=== PATIENT | male | born 1960 | race Caucasian/White ===

== ENCOUNTER → 2021-02-05 | Outpatient (CLI) | payer BC ==
[~2021-02-05] MED LIST: ASA81BEC PO; FLONASE 0.05%50 MCG NARES; HYDROCODON-ACE1 EAC7 PO; LIPITOR10 MG PO; LISINOPRIL5 MG PO; TOPROL XL25 MG PO; VENTOLIN HFA INH8 GM INH; VITAMIN B12-FO1 EAC1 PO; VITAMIN C500 M2 PO; VITAMIN D325 MC3 PO; ZYRTEC10 M5 PO
== END ==
LOC: LAB 07:53
PROVIDERS: ATTEND Surgery
DX: Z01.812 Encounter for preprocedural laboratory examination (principal); Z20.822 Contact with and (suspected) exposure to COVID-19

== ENCOUNTER 2021-02-07 06:11 | Observation (INO) | payer BC ==
[2021-02-07] VITALS (8 sets, daily range): BP systolic 117–146; BP diastolic 67–90
[~2021-02-07] VITALS: Ht 175.3 cm; Wt 120.2 kg
[~2021-02-07 06:11] MED LIST changes: -HYDROCODON-ACE1 EAC7 PO
[2021-02-07] MEDS ORDERED: HYDROCODON-ACE1 EAC7 PO (08:32)
--- NOTE | 2021-02-07 12:50 | O ---
[facility] [place] [address] OPERATIVE REPORT Name: KASSI SALVADOR Room #: 448-P [facility] M..#: [id number] Admission: 02/07/21 Attend Phys: José Marie MD Discharge: Date of : 58 Report #: [id number] THIS REPORT FOR: cc: Chapin Mcbride MD, John H. MD Franey,José Guerra MD ~ DATE OF SERVICE: 02/07/[address] José Marie and Dr. Chapin Mcbride at [facility]. PREOPERATIVE DIAGNOSES: Cholelithiasis, cholecystitis, biliary colic. POSTOPERATIVE DIAGNOSES: Cholelithiasis, cholecystitis, biliary colic. PROCEDURE: Laparoscopic cholecystectomy. SURGEON: José Marie MD ANESTHESIA: General. DESCRIPTION OF PROCEDURE: The patient was brought to the operating room and placed on operative table in the supine position. Sequential compression devices were in place for DVT prophylaxis. The patient received an appropriate preoperative dose of Mefoxin. The patient underwent a general endotracheal anesthesia and the abdomen was then prepped and draped in a sterile fashion. Skin and subcutaneous tissue around the umbilicus was then infiltrated with 0.5% Marcaine. Transverse infraumbilical skin incision was then performed using #11 scalpel blade. Hemostasis obtained using electrocautery. Dissection was carried down through subcutaneous tissue to the fascia, which was then grasped between 2 Robby clamps and incised with curved Esquivel scissors. Peritoneum was then entered and a pursestring suture of 0 Vicryl was then placed in the fascia. A 12 mm disposable Cristel port was then inserted through the opening and held in place with the balloon port and the pursestring suture. Pneumoperitoneum was obtained to a level of 10-15 mmHg. Laparoscope was inserted through this port and exploration was performed, which revealed a thickened dilated gallbladder with adhesions around the gallbladder and liver. Two lateral 5 mm Surgiports as well as an upper midline 12 mm Surgiport were all inserted under direct visualization after infiltration with 0.5% Marcaine. The gallbladder was then grasped and retracted superiorly and the adhesions around the gallbladder and liver were carefully dissected free using the [place] dissector and the hook electrocautery. The cystic duct and artery were then carefully dissected free. The cystic common bile duct junction was clearly identified. The triangle of safety was examined and identified anteriorly and posteriorly. The cystic duct was then triply clipped on the common bile duct side and doubly clipped on the gallbladder side and divided with the scissors. The artery was then doubly [facility] [address] [place] [address] OPERATIVE REPORT Name: KASSI SALVADOR Room #: 448-P [facility] M.R.#: [id number] Admission: 02/07/21 Attend Phys: José Marie MD Discharge: Date of : 58 Report #: [id number] clipped on each side and also divided with the scissors. Gallbladder was then dissected free from the bed using the hook electrocautery. Prior to completing the dissection, the gallbladder was retracted superiorly and the bed inspected for hemostasis, which was obtained using the electrocautery and found to be intact. The gallbladder was transected, placed in an EndoCatch bag and brought out through the periumbilical port and sent as specimen to pathology. There were numerous large stones within the gallbladder as well as a very thickened chronically and subacutely inflamed gallbladder wall. The port was then returned to the abdomen. The area was then copiously irrigated with warm saline solution, which was suctioned free. Meticulous hemostasis was checked and obtained using the electrocautery and found to be intact. The ports were then all removed under direct visualization, hemostasis intact at each port site. Pneumoperitoneum was released and the periumbilical port was then also removed under direct visualization, hemostasis intact at that port site as well. Periumbilical fascia was then closed using the 0 Vicryl pursestring suture. Skin was then closed using interrupted vertical mattress 5-0 nylon sutures and the wound was dressed with Band-Aids. The patient was then awakened from the general endotracheal anesthesia, extubated, and taken to recovery room in good condition. Estimated blood loss was approximately 20 mL and the patient tolerated procedure well. All sponge, lap and instrument counts correct x 2. <ELECTRONICALLY SIGNED> By: José Marie MD 02/07/21 1250 [id number] José Marie MD /nt
--- NOTE | 2021-02-07 14:21 | NUR ---
cm met with patienT AT THE BEDSIDE. PT IS S/P NICOLE BRICEÑO. PT REPORTS LIVING AT HOME WITH HIS . PT HAS 2 STEPS TO ENTER THE HOME AND REPORTS HE IS FULLY INDEPENDENT WITH ADLS AND AMBULATION. PT REPORTS NO HX OF HH. PT IS BEING DISCHARGED HOME TODAY. PT REPORTS NO NEEDS FROM CM.
--- NOTE | 2021-02-09 17:07 | PATH ---
[facility] [address] [place] [address] PATHOLOGY RPT PROCEDURE Name: KASSI SALVADOR Room #: 448-P TOBY Valadez#: [id number] Admission: 02/07/21 Date of : 58 Discharge: 02/07/21 Report #: [id number] Path Case #: [id number] [facility] Accession Number: [id number] . 01 Material submitted: . gallbladder - GALLBLADDER . 01 Clinical history: . LAPAROSCOPIC CHOLECYSTECTOMY RIGHT UPPER QUADRANT ABDOMINAL PAIN,GALLSTONES . 02 Diagnosis: Gallbladder, cholecystectomy: - Moderate acute and chronic cholecystitis. - Cholelithiasis. (IUV:pit 02/09/2021) QTP 02/09/2021 [facility]7 Local . 02 Electronically signed: . Tayla Eli MD, Pathologist NPI- [id number] . 01 Gross description: . Fixative: Formalin Labeled: Gallbladder Specimen received: Previously opened gallbladder Dimensions: 10.5 x 3.1 x 2.4 cm Serosa: [place] Mucosa: Velvety, light batres Average wall thickness: 0.1 cm Calculi: Present displaying a brown-black and smooth to nodular appearance Abnormalities: None identified . Business Strategy Manager body, fundus, and the cystic duct margin in A1. (CAA; 02/08/2021) QA/QA 02/08/2021 1851 Local . 02 Pathologist provided ICD-10: K80.10 . 02 CPT . 264975 Specimen Comment: A courtesy copy of this report has been sent to [phone] Specimen Comment: Report sent to Performed at: [address] [id number] [address] [address] PATHOLOGY RPT PROCEDURE Name: ROSEPOOLKASSI Room #: 448-P TOBY Valadez#: [id number] Admission: 02/07/21 Date of : 58 Discharge: 02/07/21 Report #: [id number] Path Case #: [id number] MD Troy Amaya MD Phone: [phone] Performed at: [address] [id number] MD Tayla Eli MD Phone: [phone]
== END 2021-02-07 15:33 | disposition home or self-care (01) ==
LOC: OR 06:11 → TBA 06:11 → OR 10:17 → 4S 12:28 → OR 14:00 → 4S 15:33
PROVIDERS: ADMIT Surgery; ATTEND Surgery
DX: K80.70 Calculus of gallbladder and bile duct without cholecystitis without obstruction (principal); Z20.822 Contact with and (suspected) exposure to COVID-19
CPT/HCPCS: 50010; 50101; 50411; 50555; 50558; 51474; 51489; 52266; 53312; 53314; 56462; 56524; 56528; 58574; 62110; 62900; 70005